=== PATIENT | male | born 1970 ===

== ENCOUNTER → 2020-03-24 | Outpatient (CLI) | payer OTHER | LOC: SJCVCIMAG 12:51 | PROVIDERS: ATTEND Internal Medicine Cardiovascular Disease | DX: I08.8 Other rheumatic multiple valve diseases (principal) ==

== ENCOUNTER → 2020-03-30 | Outpatient (CLI) | payer OTHER | LOC: SJCVCIMAG 14:44 | PROVIDERS: ATTEND Internal Medicine Cardiovascular Disease | DX: R07.9 Chest pain, unspecified (principal); Z86.19 Personal history of other infectious and parasitic diseases ==